=== PATIENT | male | born 1950 | race Caucasian/White ===

== ENCOUNTER 2021-11-01 08:32 | Emergency (ER) | payer MEDICARE, OTHER ==
[2021-11-01 08:43] VITALS: RESP 16
[2021-11-01] MEDS ORDERED: SODIUM CHLORIDE 0.9% 500 ML 500 ML IV STA (09:01)
[2021-11-01] MEDS ORDERED: SODIUM CHLORIDE 0.9% 1,000 ML IV STA (09:01)
--- NOTE | 2021-11-01 09:05 | ED ---
General Adult HPI - General Chief complaint: Syncope Stated complaint: syncope Time Seen by Provider: 11/01/21 08:40 Source: patient, RN notes reviewed, old records reviewed Mode of arrival: EMS Limitations: no limitations - History of Present Illness Initial comments: This is a 71-year-old male who presents emergency Department because he passed out this morning. Patient states he took 2 Percocet because he just had knee surgery Tuesday and he felt a little lightheaded in the bathroom so he sat down on the toilet and then passed out. His helped him to the [place] surgery she laid down she states she woke back up. Patient states at no time was he having chest pain palpitations difficulty breathing or any shortness of breath. Patient denies any significant lower leg calf tenderness. Patient states his left leg is a little swollen and it has been since surgery. Patient denies any fever chills. Patient denies any abdominal pain patient denies nausea vomiting diarrhea. Patient states currently he feels fine just a little tired from taking the Percocet. Patient states since surgery he was on Flomax but he has stopped at the last day or so. Patient feels as though he is dehydrated. - Related Data Home Medications Medication Instructions Recorded Confirmed Aspirin EC [Ecotrin] 325 mg PO BID 11/01/21 11/01/21 Gabapentin [Neurontin] 100 mg PO BID 11/01/21 11/01/21 Latanoprost [Xalatan 0.005%] 1 drop BOTH EYES HS 11/01/21 11/01/21 Levothyroxine Sodium 112 mcg PO DAILY 11/01/21 11/01/21 Sennosides [Senna] 8.6 mg PO DAILY 11/01/21 11/01/21 methylPREDNISolone [Medrol] 4 mg PO BID 11/01/21 11/01/21 oxyCODONE-APAP 5-325MG [Percocet 1 tab PO Q4HR PRN 11/01/21 11/01/21 5-325 mg] Allergies Allergy/AdvReac Type Severity Reaction Status Date / Time Penicillins Allergy Unknown Verified 11/01/21 09:22 Childhood Review of Systems ROS Statement: Those systems with pertinent positive or pertinent negative responses have been documented in the HPI. ROS Other: All systems not noted in ROS Statement are negative. Past Medical History Past Medical History: Thyroid Disorder Additional Past Medical History / Comment(s): ileostomy bag, crohns. History of Any Multi-Drug Resistant Organisms: None Reported Past Surgical History: Orthopedic Surgery Additional Past Surgical History / Comment(s): ileostomy bag, left knee replacement Past Psychological History: No Psychological Hx Reported Smoking Status: Never smoker Past Alcohol Use History: Occasional Past Drug Use History: None Reported General Exam - General Exam Comments Initial Comments: GENERAL: Patient is well-developed and well-nourished. Patient is nontoxic and well- hydrated and is in no acute distress. ENT: Neck is soft and supple. No significant lymphadenopathy is noted. Oropharynx is clear. Moist mucous membranes. Neck has full range of motion without eliciting any pain. EYES: The sclera were anicteric and conjunctiva were pink and moist. Extraocular movements were intact and pupils were equal round and reactive to light. Eyelids were unremarkable. PULMONARY: Unlabored respirations. Good breath sounds bilaterally. No audible rales rhonchi or wheezing was noted. CARDIOVASCULAR: There is a regular rate and rhythm without any murmurs gallops or rubs. ABDOMEN: Soft and nontender with normal bowel sounds. SKIN: Skin is clear with no lesions or rashes and otherwise unremarkable. NEUROLOGIC: Patient is alert and oriented x3. Cranial nerves II through XII are grossly intact. Motor and sensory are also intact. Normal speech, volume and content. Symmetrical smile. MUSCULOSKELETAL: Normal extremities with adequate strength and full range of motion. Mild edema to the left leg tenderness LYMPHATICS: No significant lymphadenopathy is noted PSYCHIATRIC: Normal psychiatric evaluation. Limitations: no limitations Course Vital Signs 11/01/21 11/01/21 11/01/21 08:37 08:38 08:40 Temperature 98.1 F Pulse Rate 62 61 Pulse Rate [ Sitting] Pulse Rate [ Standing] Pulse Rate [ Supine] Respiratory 16 Rate Blood Pressure 128/72 128/72 Blood Pressure [Sitting] Blood Pressure [Standing] Blood Pressure [Supine] O2 Sat by Pulse 97 98 98 Oximetry 11/01/21 11/01/21 11/01/21 08:50 09:00 09:10 Temperature Pulse Rate 61 61 57 L Pulse Rate [ Sitting] Pulse Rate [ Standing] Pulse Rate [ Supine] Respiratory Rate Blood Pressure 128/72 128/72 126/72 Blood Pressure [Sitting] Blood Pressure [Standing] Blood Pressure [Supine] O2 Sat by Pulse 99 100 100 Oximetry 11/01/21 11/01/21 11/01/21 09:20 09:30 09:40 Temperature Pulse Rate 62 59 L Pulse Rate [ Sitting] Pulse Rate [ Standing] Pulse Rate [ Supine] Respiratory Rate Blood Pressure 126/72 126/72 126/72 Blood Pressure [Sitting] Blood Pressure [Standing] Blood Pressure [Supine] O2 Sat by Pulse 97 99 Oximetry 11/01/21 11/01/21 11/01/21 09:50 10:00 10:08 Temperature Pulse Rate 59 L 75 Pulse Rate [ 72 Sitting] Pulse Rate [ 79 Standing] Pulse Rate [ 68 Supine] Respiratory Rate Blood Pressure 126/72 98/64 Blood Pressure 126/81 [Sitting] Blood Pressure 98/64 [Standing] Blood Pressure 126/72 [Supine] O2 Sat by Pulse 99 99 Oximetry 11/01/21 12:15 Temperature Pulse Rate Pulse Rate [ 76 Sitting] Pulse Rate [ 76 Standing] Pulse Rate [ 63 Supine] Respiratory Rate Blood Pressure Blood Pressure 153/76 [Sitting] Blood Pressure 162/84 [Standing] Blood Pressure 138/76 [Supine] O2 Sat by Pulse 99 Oximetry Medical Decision Making - Medical Decision Making EKG shows sinus bradycardia 59 bpm ID interval is 146 QRS is 100 QT interval is 416 QTC is 411. Patient's EKG shows no ST segment elevation or depression. Patient has a DVT in the posterior tibial veins. Patient states that he has had multiple episodes of dehydration the past and passing out I spoke with Dr. Lynn he wanted the patient to start on aspirin and did not want the patient on thinners at this time because of his recent surgery and follow-up in a week for an ultrasound to see if the DVT has propagated. Patient's CT of the chest showed no PE. Patient had repeat orthostatics he was not orthostatic and was noted not dizzy. - Lab Data Result diagrams: 11/01/21 08:55 11/01/21 08:55 Lab Results 11/01/21 11/01/21 11/01/21 Range/Units 08:55 08:55 08:55 WBC 11.1 H (3.8-10.6) k/uL RBC 4.43 (4.30-5.90) m/uL Hgb 13.9 (13.0-17.5) gm/dL Hct 41.0 (39.0-53.0) % MCV 92.5 (80.0-100.0) fL MCH 31.3 (25.0-35.0) pg MCHC 33.9 (31.0-37.0) g/dL RDW 12.9 (11.5-15.5) % Plt Count 144 L (150-450) k/uL MPV 7.6 Neutrophils % 72 % Lymphocytes % 19 % Monocytes % 6 % Eosinophils % 2 % Basophils % 0 % Neutrophils # 8.0 H (1.3-7.7) k/uL Lymphocytes # 2.1 (1.0-4.8) k/uL Monocytes # 0.6 (0-1.0) k/uL Eosinophils # 0.2 (0-0.7) k/uL Basophils # 0.0 (0-0.2) k/uL PT 10.5 (9.0-12.0) sec INR 1.0 (<1.2) APTT 19.2 L (22.0-30.0) sec Sodium 137 (137-145) mmol/L Potassium 4.3 (3.5-5.1) mmol/L Chloride 101 (98-107) mmol/L Carbon Dioxide 29 (22-30) mmol/L Anion Gap 7 mmol/L BUN 20 (9-20) mg/dL Creatinine 1.18 (0.66-1.25) mg/dL Est GFR (CKD-EPI)AfAm 71 (>60 ml/min/1.73 sqM) Est GFR (CKD-EPI)NonAf 62 (>60 ml/min/1.73 sqM) Glucose 96 (74-99) mg/dL Calcium 8.8 (8.4-10.2) mg/dL Magnesium 2.1 (1.6-2.3) mg/dL Total Bilirubin 0.6 (0.2-1.3) mg/dL AST 45 (17-59) U/L ALT 33 (4-49) U/L Alkaline Phosphatase 62 (38-126) U/L Troponin I (0.000-0.034) ng/mL Total Protein 6.6 (6.3-8.2) g/dL Albumin 3.7 (3.5-5.0) g/dL 11/01/21 Range/Units 08:55 WBC (3.8-10.6) k/uL RBC (4.30-5.90) m/uL Hgb (13.0-17.5) gm/dL Hct (39.0-53.0) % MCV (80.0-100.0) fL MCH (25.0-35.0) pg MCHC (31.0-37.0) g/dL RDW (11.5-15.5) % Plt Count (150-450) k/uL MPV Neutrophils % % Lymphocytes % % Monocytes % % Eosinophils % % Basophils % % Neutrophils # (1.3-7.7) k/uL Lymphocytes # (1.0-4.8) k/uL Monocytes # (0-1.0) k/uL Eosinophils # (0-0.7) k/uL Basophils # (0-0.2) k/uL PT (9.0-12.0) sec INR (<1.2) APTT (22.0-30.0) sec Sodium (137-145) mmol/L Potassium (3.5-5.1) mmol/L Chloride (98-107) mmol/L Carbon Dioxide (22-30) mmol/L Anion Gap mmol/L BUN (9-20) mg/dL Creatinine (0.66-1.25) mg/dL Est GFR (CKD-EPI)AfAm (>60 ml/min/1.73 sqM) Est GFR (CKD-EPI)NonAf (>60 ml/min/1.73 sqM) Glucose (74-99) mg/dL Calcium (8.4-10.2) mg/dL Magnesium (1.6-2.3) mg/dL Total Bilirubin (0.2-1.3) mg/dL AST (17-59) U/L ALT (4-49) U/L Alkaline Phosphatase (38-126) U/L Troponin I <0.012 (0.000-0.034) ng/mL Total Protein (6.3-8.2) g/dL Albumin (3.5-5.0) g/dL Disposition Clinical Impression: Vasovagal syncope, Deep venous thrombosis Disposition: HOME SELF-CARE Condition: Good Instructions (If sedation given, give patient instructions): Deep Vein Thrombosis (ED), Hypotension (ED), Syncope (ED) Additional Instructions: Patient should take a whole aspirin daily. Patient should follow-up in one week to get a repeat ultrasound to indicate if the patient had any progression of the blood clot Is patient prescribed a controlled substance at d/c from ED?: No Referrals: Lester Perdue III, MD [Primary Care Provider] - 1-2 days Time of Disposition: 12:23
[2021-11-01 09:18] LABS: Basophils % (A) 0 %; Eosinophils # (A) 0.2 k/uL (0-0.7); Eosinophils % (A) 2 %; HGB 13.9 gm/dL (13.0-17.5); Lymphocytes # (A) 2.1 k/uL (1.0-4.8); Lymphocytes % (A) 19 %; MCH 31.3 pg (25.0-35.0); MCHC 33.9 g/dL (31.0-37.0); MCV 92.5 fL (80.0-100.0); Mean Platelet Volume 7.6; Monocytes # (A) 0.6 k/uL (0-1.0); Monocytes % (A) 6 %; Neutrophils % (A) 72 %; Platelet Count 144 k/uL (150-450); RBC 4.43 m/uL (4.30-5.90); RDW 12.9 % (11.5-15.5); WBC 11.1 k/uL (3.8-10.6)
--- NOTE | 2021-11-01 09:24 | XR ---
EXAMINATION TYPE: XR chest 2V DATE OF EXAM: 11/01/2021 COMPARISON: None HISTORY: Chest pain TECHNIQUE: Frontal and lateral views of the chest are obtained. FINDINGS: There is no focal air space opacity, pleural effusion, or pneumothorax seen. The cardiac silhouette size is within normal limits. The osseous structures are intact. IMPRESSION: No acute cardiopulmonary process.
[2021-11-01 09:33] LABS: Prothrombin Time 10.5 sec (9.0-12.0)
[2021-11-01 09:37] LABS: Albumin 3.7 g/dL (3.5-5.0); Calcium 8.8 mg/dL (8.4-10.2); Magnesium 2.1 mg/dL (1.6-2.3); Potassium 4.3 mmol/L (3.5-5.1); Total Bilirubin 0.6 mg/dL (0.2-1.3); Total Protein 6.6 g/dL (6.3-8.2)
[2021-11-01 09:51] LABS: Partial Thromboplastin Time 19.2 sec (22.0-30.0)
--- NOTE | 2021-11-01 09:53 | US ---
EXAMINATION TYPE: US venous doppler duplex LE LT DATE OF EXAM: 11/01/2021 9:45 AM COMPARISON: NONE CLINICAL HISTORY: Rule out DVT. Pain and swelling post total knee. TECHNIQUE: The lower extremity deep venous system is examined utilizing real time linear array sonog danial with graded compression, doppler sonography and color-flow sonography. VESSELS IMAGED: Common Femoral Vein Deep Femoral Vein Greater Saphenous Vein * Femoral Vein Popliteal Vein Small Saphenous Vein * Proximal Calf Veins (* superficial vessels) Left Leg: Positive for DVT. There is thrombus with no flow and non compressible in the PTV's. IMPRESSION: Positive infrapopliteal left lower extremity DVT involving the posterior tibial veins.
--- NOTE | 2021-11-01 11:35 | CT ---
EXAMINATION TYPE: CT chest angio for PE DATE OF EXAM: 11/01/2021 COMPARISON: None HISTORY: Syncope, recent knee replacement, postitive DVT CT DLP: 378.6 mGycm CONTRAST: CT chest with contrast and 3D reconstruction with MIP imaging is performed with IV Contrast, patient injected with 100 mL of Isovue 370. Contrast-enhanced CT of the chest was performed through the course of the pulmonary arteries with chanel g and mediastinal window settings submitted. 3D reconstruction with MIP imaging was also performed. PULMONARY ARTERIES: The pulmonary arteries and their major tributaries are patent. I do not see christy dence for sizable filling defect to suggest pulmonary embolic process. LUNGS: The lungs are clear and free of infiltrate. No evidence for atelectasis. No pulmonary nodule or mass is detected. No pleural effusion. MEDIASTINUM: Thoracic aorta is of normal caliber,however, evaluation is limited given timing of the contrast bolus. If there is concern for thoracic aortic pathology consider VAN. Correlate clinicall y . The heart is not enlarged. No evidence for mediastinal mass. No mediastinal lymph nodes greater than 1cm. HILAR STRUCTURES: No evidence for mass. No hilar lymph nodes greater than 1 cm. UPPER ABDOMEN: No significant abnormality is seen. IMPRESSION: 1. No evidence for Pulmonary embolism at this time.
[2021-11-01] MEDS ORDERED: ASPIRIN 325 MG TAB PO STA (11:53)
[2021-11-01] MEDS ORDERED: HYDROmorphone 0.5 MG/0.5 ML SYRINGE IVP STA (12:22)
[2021-11-01 13:34] VITALS: BP 129/104; PULSE 76; TEMP 98.6
== END 2021-11-01 14:06 | disposition home or self-care (01) ==
LOC: EC 08:32
DX: I82.4Z2 Acute embolism and thrombosis of unspecified deep veins of left distal lower extremity (principal); R55 Syncope and collapse; Z79.82 Long term (current) use of aspirin; Z79.890 Hormone replacement therapy; Z79.899 Other long term (current) drug therapy; Z88.0 Allergy status to penicillin
CPT/HCPCS: 36415; 93005; 80053; 83735; 84484; 85025; 85610; 85730; 71046; 93971; 71275; 99285; 96374; 96361; J1170; Q9967

== ENCOUNTER → 2021-11-10 | Outpatient (CLI) | payer MEDICARE, OTHER ==
--- NOTE | 2021-11-10 11:07 | US ---
EXAMINATION TYPE: US venous doppler duplex LE DATE OF EXAM: 11/10/2021 10:50 AM COMPARISON: US dated 11/01/2021 CLINICAL HISTORY: 71-year-old male R22.42 Localized swelling, mass and lump, left lower extremity. SIDE PERFORMED: Left TECHNIQUE: The lower extremity deep venous system is examined utilizing real time linear array sonog danial with graded compression, doppler sonography and color-flow sonography. VESSELS IMAGED: Common Femoral Vein Deep Femoral Vein Greater Saphenous Vein * Femoral Vein Popliteal Vein Small Saphenous Vein * Proximal Calf Veins (* superficial vessels) Left Leg: Positive for DVT, there is non occlusive thrombus noted now in the lower popliteal vein wi th partial compression. The PTV's are partially compressible with non occlusive flow. IMPRESSION: Compared to 11/01/2021, there has been some progression in clot up into the lower popliteal vein. This DVT is nonocclusive and there is now partial compressibility of the previously occluded upper calf v eins.
== END | disposition home or self-care (01) ==
LOC: RADUSWWP 10:30
PROVIDERS: ATTEND Emergency Medicine
DX: I82.432 Acute embolism and thrombosis of left popliteal vein (principal)